=== PATIENT | female | born 1995 | race Two or more races ===

== ENCOUNTER 2018-11-10 11:50 | Inpatient (IN) | payer OTHER ==
[~2018-11-10] VITALS: Ht 157.5 cm; Wt 73.6 kg
[2018-11-10 12:50] LABS: BASOPHILS % (AUTO) 0.3 % (0.0-2.0); EOSINOPHILS % (AUTO) 0.4 % (1.0-6.0); HEMATOCRIT 39.4 % (36-46); HEMOGLOBIN 12.9 g/dL (12.0-16.0); LYMPHOCYTES # (AUTO) 1.4 K/uL (1.0-4.8); LYMPHOCYTES % (AUTO) 16.1 % (22.0-44.0); MEAN CORPUSCULAR HEMOGLOBIN 30.2 pg (26.0-34.0); MEAN CORPUSCULAR HGB CONC 32.8 G/dL (31.0-37.0); MEAN CORPUSCULAR VOLUME 92 fL (80-100); MONOCYTES # (AUTO) 0.6 K/uL (0.1-1.0); MONOCYTES % (AUTO) 7.2 % (2.0-9.0); NEUTROPHILS # (AUTO) 6.4 K/uL (1.8-7.7); PLATELET COUNT (AUTO) 223 K/uL (150-450); RED BLOOD CELL COUNT(AUTO) 4.28 MIL/uL (4.00-5.20); RED CELL DISTRIBUTION WIDTH 14.1 % (11.5-14.5)
[2018-11-10 12:53] LABS: ANION GAP 10 mmol/L (8-16); CALCIUM, TOTAL 9.3 mg/dL (8.8-10.5); CARBON DIOXIDE 28 mmol/L (22-29); CHLORIDE 102 mmol/L (98-107); CREATININE 0.89 mg/dL (0.60-1.30); GLOMERULAR FILTR. RATE CALC > 60 mL/min (>60); GLUCOSE,RANDOM 93 mg/dL (70-110); POTASSIUM 4.2 mmol/L (3.5-5.1); SODIUM SERUM 140 mmol/L (136-145); UREA NITROGEN, BLOOD 10 mg/dL (7-18)
[2018-11-10 12:58] LABS: ALANINE AMINOTRANSFERASE 23 U/L (12-78); ALBUMIN 4.5 g/dL (3.4-5.0); ALKALINE PHOSPHATASE 51 U/L (46-116); ASPARTATE AMINOTRANSFERASE 17 U/L (15-37); BILIRUBIN,TOTAL 0.6 mg/dL (0.1-1.0); TOTAL PROTEIN, SERUM 8.1 g/dL (6.4-8.2)
[2018-11-10] MEDS ORDERED: IBUPROFEN 600 MG TABLET PO ONE (14:15)
[2018-11-10] MEDS ORDERED: LORazepam 1 MG TABLET PO ONE (14:15)
[2018-11-10] MEDS ORDERED: HALOPERIDOL 5 MG TABLET PO PRN (15:15)
[2018-11-10] MEDS ORDERED: PNEUMOCOCCAL VACCINE POLYVALENT 0.5 ML VIAL [PPSV23] IM ONE (20:30)
[2018-11-10 20:31] VITALS: BP 114/75
[2018-11-11 00:46] VITALS: BP 112/74
[2018-11-11] MEDS: LORazepam 2 MG TABLET PO PRN (06:46)
[2018-11-11 08:48] LABS: CHOL/HDL RATIO 2.7 (3.9-5.7)
[2018-11-11 08:51] VITALS: BP 102/61
[2018-11-11] MEDS: ESCITALOPRAM OXALATE 10 MG TABLET PO SCH (13:15)
[2018-11-11] MEDS ORDERED: ALBUTEROL SULFATE HFA 90 MCG/PUFF 8 GM INHALER IH PRN (14:45)
[2018-11-11 16:29] VITALS: BP 119/69
[2018-11-11] MEDS: ZOLPIDEM TARTRATE 10 MG TABLET PO PRN (21:43)
[2018-11-12 06:11] VITALS: BP 118/72
[2018-11-12] MEDS: ESCITALOPRAM OXALATE 10 MG TABLET PO SCH (08:33)
[2018-11-12] MEDS ORDERED: ESCITALOPRAM OXALATE 10 MG TABLET PO SCH (09:00)
[2018-11-12 09:48] VITALS: BP 110/56
[2018-11-12] MEDS: LORazepam 2 MG TABLET PO PRN (14:27)
[2018-11-12 16:20] VITALS: BP 132/65
[2018-11-12] MEDS: ZOLPIDEM TARTRATE 10 MG TABLET PO PRN (21:30)
[2018-11-13 06:31] VITALS: BP 115/63
[2018-11-13] MEDS: LORazepam 2 MG TABLET PO PRN (08:05)
[2018-11-13 08:27] VITALS: BP 114/77
[2018-11-13] MEDS ORDERED: ESCITALOPRAM OXALATE 10 MG TABLET PO SCH (09:00)
[2018-11-13] MEDS ORDERED: ESCI10TA PO (10:13)
== END 2018-11-13 11:50 | disposition home or self-care (01) | DRG 885 ==
LOC: EMS 11:52 → B2S 16:49
PROVIDERS: ADMIT Psychiatry & Neurology Psychiatry; ATTEND Psychiatry & Neurology Psychiatry
DX: F33.2 Major depressive disorder, recurrent severe without psychotic features (principal); R45.851 Suicidal ideations; F17.210 Nicotine dependence, cigarettes, uncomplicated; F12.90 Cannabis use, unspecified, uncomplicated; F60.3 Borderline personality disorder; J30.9 Allergic rhinitis, unspecified; G47.30 Sleep apnea, unspecified; Z83.3 Family history of diabetes mellitus; Z91.040 Latex allergy status; Z91.013 Allergy to seafood; Z91.19 Patient's noncompliance with other medical treatment and regimen
CPT/HCPCS: G0480